=== PATIENT | female | born 1990 | race Caucasian/White ===

== ENCOUNTER 2020-01-28 21:47 | Emergency (ER) | payer OTHER ==
[~2020-01-28] VITALS: Ht 162.6 cm; Wt 58.5 kg
[2020-01-28 21:54] VITALS: Ht 162.6 cm; Wt 58.5 kg
[2020-01-28 23:03] VITALS: BP 121/76
== END 2020-01-28 23:03 | disposition home or self-care (01) ==
LOC: ED 21:47
DX: S61.412A Laceration without foreign body of left hand, initial encounter (principal); W26.0XXA Contact with knife, initial encounter; Y93.89 Activity, other specified; Y92.89 Other specified places as the place of occurrence of the external cause; Y99.8 Other external cause status
CPT/HCPCS: 90715; J2001